=== PATIENT | male | born 1995 | race American Indian/Alaskan Native ===

== ENCOUNTER 2019-09-22 19:43 | Emergency (ER) | payer SELFPAY ==
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
--- NOTE | 2019-09-23 00:04 | XRay Report ---
Lumbosacral spine, 3 views INDICATION: Back pain FINDINGS: The vertebral body heights and disc spaces are preserved. No fracture or spondylolisthesis. No spurring or arthritis. No bony abnormality identified. Impression: Normal lumbar spine radiograph. Signer Name: Papo Uriostegui MD Signed: 09/23/2019 12:00 AM Workstation Name: [id number]
--- NOTE | 2019-09-23 00:04 | XRay Report ---
Cervical spine, 3 views INDICATION: Neck pain FINDINGS: On the lateral view the cervical spine is seen to the level of C7.The vertebral body height s and disc spaces are preserved. No fracture or subluxation. No spurring or arthritis. Prevertebral s oft tissues are normal. Odontoid view is unremarkable. No bony abnormality identified. Impression: Normal cervical spine series. Signer Name: Papo Uriostegui MD Signed: 09/22/2019 11:59 PM Workstation Name: [id number]
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
[2019-09-23 00:39] VITALS: BP 115/78
== END 2019-09-23 00:39 | disposition home or self-care (01) ==
LOC: ED 19:43
DX: S13.8XXA Sprain of joints and ligaments of other parts of neck, initial encounter (principal); S33.5XXA Sprain of ligaments of lumbar spine, initial encounter; S63.502A Unspecified sprain of left wrist, initial encounter; S63.501A Unspecified sprain of right wrist, initial encounter; M54.2 Cervicalgia; R51 Headache; Z79.899 Other long term (current) drug therapy; V49.49XA Driver injured in collision with other motor vehicles in traffic accident, initial encounter; Y93.89 Activity, other specified; Y92.410 Unspecified street and highway as the place of occurrence of the external cause; Y99.8 Other external cause status
CPT/HCPCS: 72040; 72100